=== PATIENT | male | born 1940 | race Caucasian/White ===

== ENCOUNTER 2018-09-17 13:12 | Emergency (ER) | payer MEDICARE ==
--- NOTE | 2018-09-17 14:34 | ED Physician Documentation ---
PD HPI HEAD INJURY - Stated complaint Stated Complaint: GLF - Chief complaint Chief Complaint: Trauma Hd/Nk - History obtained from History obtained from: Patient - History of Present Illness Mechanism of head injury: Fell (he was playing pickleball and stumbled and fell, striking back of head on bleacher. No LOC, no nausea. Got up and played 2 more games. Going home, he noted a lump on back of head. No headache per se. Here for evaluation. Does not feel other significant injury.) Where head injury occurred: Other (gymnasium in [place]) Timing - onset: How many hours ago (few), Today Location of injury: Back Quality of pain: No: Throbbing, Aching Associated symptoms: No: LOC, AMS, Nausea / vomiting, Neck pain Symptoms worsen with: Palpation Contributing factors: No: Anticoagulated, Intoxicated Similar symptoms before: Has not had sx before Review of Systems Constitutional: denies: Fever Nose: denies: Rhinorrhea / runny nose, Congestion Throat: denies: Sore throat Respiratory: denies: Cough GI: denies: Nausea, Vomiting, Diarrhea PD PAST MEDICAL HISTORY - Past Medical History Past Medical History: Yes Cardiovascular: Hypertension, High cholesterol Respiratory: None Neuro: None Endocrine/Autoimmune: None - Past Surgical History Past Surgical History: No - Present Medications Home Medications: Ambulatory Orders Medication Instructions Recorded Confirmed Acetaminophen 650 mg PO Q6H PRN 14 Days #30 09/18/18 capsule Atorvastatin Calcium 50 mg PO DAILY 09/18/18 09/18/18 Losartan Potassium 25 mg PO DAILY 09/18/18 09/18/18 Naproxen [Naprosyn] 500 mg PO BID PRN 15 Days #30 09/18/18 tablet amLODIPine [Norvasc] 5 mg PO DAILY 09/18/18 09/18/18 - Allergies Allergies/Adverse Reactions: Allergies Allergy/AdvReac Type Severity Reaction Status Date / Time silver sulfadiazine Allergy Unknown Verified 09/17/18 13:20 [From [facility]] - Social History Does the pt smoke?: No Smoking Status: Former smoker Does the pt drink ETOH?: Yes Does the pt have substance abuse?: No - Immunizations Immunizations are current?: Yes - POLST Patient has POLST: No PD ED PE NORMAL - Vitals Vital signs reviewed: Yes - General General: Alert and oriented X 3, No acute distress, Well developed/nourished - HEENT HEENT: Other (small lump on occiput, without bleeding. 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 No indication for imaging per [facility] head and neck guidelines. ), d/w patient Departure - Departure Disposition: 01 Home, Self Care Clinical Impression: Scalp contusion Qualifiers: Encounter type: initial encounter Qualified Code(s): S00.03XA - Contusion of scalp, initial encounter Fall in sports Qualifiers: Encounter type: initial encounter Qualified Code(s): W19.XXXA - Unspecified fall, initial encounter Condition: Stable Record reviewed to determine appropriate education?: Yes Instructions: ED Head Injury Closed Follow-Up: Ab River MD [Primary Care Provider] - Comments: You do not have any concussive symptoms. I do not see an indication for imaging at this time. Return if you have any symptoms develop. Tylenol or ibuprofen are fine for any scalp pain. Activity as able. Discharge Date/Time: 09/17/18 14:58
[2018-09-17] MEDS ORDERED: ACETAMINOPHEN 325 MG TABLET PO STA (14:47)
[2018-09-17 14:59] VITALS: BP 150/86
== END 2018-09-17 14:58 | disposition home or self-care (01) ==
LOC: ED 13:12
DX: S00.03XA Contusion of scalp, initial encounter (principal); W01.198A Fall on same level from slipping, tripping and stumbling with subsequent striking against other object, initial encounter; Y93.69 Activity, other involving other sports and athletics played as a team or group; Y92.39 Other specified sports and athletic area as the place of occurrence of the external cause; I10 Essential (primary) hypertension; Z87.891 Personal history of nicotine dependence
CPT/HCPCS: 99282; A9270

== ENCOUNTER 2018-09-18 06:44 | Emergency (ER) | payer MEDICARE ==
--- NOTE | 2018-09-18 07:13 | ED Physician Documentation ---
History of Present Illness - Stated complaint Stated Complaint: LT LEG PX - Chief complaint Chief Complaint: Trauma Ext - Additonal information Additional information: This is a 78-year-old male who presents for evaluation of some left posterior thigh pain. Patient was playing pickle ball yesterday when he tripped And fell backwards landing on his gluteal region and impacting his posterior scalp. He denies loss of consciousness and was feeling okay afterwards to the point that he actually played several more games. He presented to the emergency department yesterday for evaluation of a contusion to the back of his scalp, given that he is feeling well, had a normal neurologic exam, and had no concussive symptoms or loss of consciousness, decision was made to observe this and treated supportively. He states that his head is feeling fine today, but he has had some increasing soreness over his left lateral posterior thigh. The pain is worse when he is extending his leg on standing up, and when he actively flexes his knee. He denies any pain in the knee joint, denies any pain in his calf. No numbness tingling or weakness. The pain is mild in severity at rest, moderate with movement. Review of Systems Constitutional: denies: Fever Skin: reports: Other (+Contusion) Musculoskeletal: reports: Other (See HPI) Neurologic: denies: LOC PD PAST MEDICAL HISTORY - Past Medical History Past Medical History: Yes Cardiovascular: Hypertension, High cholesterol - Past Surgical History Past Surgical History: No - Present Medications Home Medications: Ambulatory Orders Medication Instructions Recorded Confirmed Acetaminophen 650 mg PO Q6H PRN 14 Days #30 09/18/18 capsule Atorvastatin Calcium 50 mg PO DAILY 09/18/18 09/18/18 Losartan Potassium 25 mg PO DAILY 09/18/18 09/18/18 Naproxen [Naprosyn] 500 mg PO BID PRN 15 Days #30 09/18/18 tablet amLODIPine [Norvasc] 5 mg PO DAILY 09/18/18 09/18/18 - Allergies Allergies/Adverse Reactions: Allergies Allergy/AdvReac Type Severity Reaction Status Date / Time silver sulfadiazine Allergy Unknown Verified 09/17/18 13:20 [From [facility]] - Social History Does the pt smoke?: No Smoking Status: Never smoker Does the pt drink ETOH?: Yes Does the pt have substance abuse?: No - Immunizations Immunizations are current?: Yes - POLST Patient has POLST: No PD ED PE NORMAL - Free text exam Free text exam: GENERAL: Awake, alert EYES: Normal sclera HENT/Mouth: Mucus membranes are moist RESP: Normal respiratory rate and effort CV: Regular rate and rhythm MSK:Lower extremities are symmetric, Patient has full active range of motion of his left hip knee and ankle. With active flexion of his knee he has some soreness in his left lateral hamstring, But no tenderness over the tendons. There is no ecchymosis. His strength with knee flexion extension is 5 out of 5 bilaterally. Distal sensation and pulses are intact. No tenderness along the joint line of the knee, patella, negative anterior and posterior drawer tests. NEURO: Alert, oriented x3; gross movement and sensation intact Results - Vitals Vitals: Vital Signs - 24 hr 09/18/18 06:50 Temperature 36 C L Heart Rate 76 Respiratory 16 Rate Blood Pressure 160/85 H O2 Saturation 98 Oxygen O2 Source Room air PD MEDICAL DECISION MAKING - ED course Complexity details: considered differential (Fracture, dislocation, strain, ligamentous injury,Sprain) ED course: On initial examination patient is in no acute distress. Vital signs are notable for mild hypertension. Patient had a minor head injury yesterday with no loss of consciousness, he is a very mild contusion on his scalp which he states is improving, he has no symptoms or neurologic findings to suggest that he needs imaging today. Regarding his Leg pain, he is able to ambulate but he is sore in the area of his left hamstring. He has no ecchymosis, his tendons appear intact, and he is not significantly tender to palpation, I feel that a significant tendon tear is unlikely, he more likely has a muscle strain. No bony tenderness or signs of fracture. He has full strength with flexion and extension of his knee, no signs of ligamentous injury on my knee exam. I recommended rest, ice, compression, elevation, prescribed him naproxen and Tylenol with instructions on their use, recommended follow-up with his primary care provider or sports medicine in 1 to 2 weeks as needed. Return precautions were discussed and patient was discharged home. Departure - Departure Disposition: Home, Self Care Clinical Impression: Left hamstring muscle strain Condition: Good Instructions: RICE Follow-Up: Ab River MD [Primary Care Provider] - (Please follow up in 1-2 weeks if you are having continued symptoms) Prescriptions: Acetaminophen 650 mg PO Q6H PRN 14 Days #30 capsule PRN Reason: Pain Naproxen [Naprosyn] 500 mg PO BID PRN 15 Days #30 tablet PRN Reason: Pain Comments: You appear to have a strain of your hamstring muscle. Please rest your leg, and avoid strenuous activity. Ice the area that is sore for 20 minutes at least 4- 5 times daily for the next 48 hours. If you develop severely increasing pain return to the emergency department, otherwise you may follow-up with your primary care provider or sports medicine doctor if you have continued symptoms in 1 to 2 weeks.
[2018-09-18 07:59] VITALS: BP 138/78
== END 2018-09-18 07:55 | disposition home or self-care (01) ==
LOC: ED 06:44
DX: S76.311A Strain of muscle, fascia and tendon of the posterior muscle group at thigh level, right thigh, initial encounter (principal); W01.0XXA Fall on same level from slipping, tripping and stumbling without subsequent striking against object, initial encounter; Y93.73 Activity, racquet and hand sports; I10 Essential (primary) hypertension
CPT/HCPCS: 99282; 99284

== ENCOUNTER 2019-12-24 08:00 | Outpatient (CLI) | payer MEDICARE ==
--- NOTE | 2019-12-24 10:58 | XRAY Report ---
PROCEDURE: Ribs w/PA Chest LT INDICATIONS: LEFT ANTERIOR RIB PAIN TECHNIQUE: 4 views of the left ribs were acquired, along with a single view chest. COMPARISON: None FINDINGS: Surgical changes and devices: None. Bones and chest wall: No fractures or dislocations. No suspicious bony lesions. Overlying soft tis sues appear unremarkable. Lungs and pleura: No pleural effusions or pneumothorax. Lungs appear clear. Mediastinum: Mediastinal contours appear normal. Heart size is normal. IMPRESSION: Chest without acute cardiopulmonary abnormalities. No acute rib fractures identified. Reviewed by: Jose C Thomas MD on 12/24/2019 9:57 AM [facility] Approved by: Jose C Thomas MD on 12/24/2019 9:57 AM [facility] Station ID: [id number]
--- NOTE | 2019-12-24 10:58 | XRAY Report ---
PROCEDURE: Chest 1 View X-Ray INDICATIONS: LEFT SIDED CHEST PAIN TECHNIQUE: One lateral view of the chest was acquired. COMPARISON: None. FINDINGS: Surgical changes and devices: None. Lungs and pleura: No pleural effusions or pneumothorax. Lungs are clear. Mediastinum: Cardiomediastinal contours appear within normal limits on this lateral view. Bones and chest wall: No suspicious bony lesions. Overlying soft tissues appear unremarkable. IMPRESSION: Lateral view of the chest without acute cardiopulmonary abnormalities. No acute compression fractures of the imaged spine. Reviewed by: Jose C Thomas MD on 12/24/2019 9:56 AM [facility] Approved by: Jose C Thomas MD on 12/24/2019 9:56 AM [facility] Station ID: [id number]
== END 2019-12-24 23:59 ==
LOC: DI.S 08:00
PROVIDERS: ATTEND Physician Assistant Medical
DX: R07.81 Pleurodynia (principal)

== ENCOUNTER 2023-01-12 08:35 | Outpatient (CLI) | payer MEDICARE ==
[2023-01-12 15:41] LABS: HCT - HEMATOCRIT 41.4 % (42.0-52.0); HGB - HEMOGLOBIN 13.6 g/dL (14.0-18.0); MEAN CORPUSCULAR HEMOGLOBIN 33.6 pg (27.0-31.0); MEAN CORPUSCULAR HGB CONC 32.9 g/dL (32.0-36.0); MEAN CORPUSCULAR VOLUME 102.2 fL (80.0-94.0); RED BLOOD COUNT 4.05 10^6/uL (4.70-6.10); RED CELL DISTRIBUTION WIDTH 12.9 % (12.0-15.0); WHITE BLOOD COUNT 4.6 x10^3/uL (4.8-10.8)
[2023-01-12 16:19] LABS: ALBUMIN 4.4 g/dL (3.2-5.5); ALBUMIN/GLOBULIN RATIO 1.6 (1.0-2.2); ALKALINE PHOSPHATASE 77 IU/L (42-121); ALT ALANINE AMINOTRANSFERASE 24 IU/L (10-60); AST ASPARTATE AMINOTRANSFERASE 22 IU/L (10-42); BILIRUBIN,TOTAL 0.8 mg/dL (0.2-1.0); BUN - BLOOD UREA NITROGEN 14 mg/dL (6-20); CALCIUM 9.6 mg/dL (8.5-10.3); CARBON DIOXIDE - CO2 29 mmol/L (21-32); CHLORIDE 104 mmol/L (101-111); CHOL/HDL RATIO 2.8 (<5.0); CHOLESTEROL 172 mg/dL; CREATININE 0.8 mg/dL (0.6-1.3); GFR - MDRD 93 (>89); GLUCOSE 118 mg/dL (74-104); HDL CHOLESTEROL 61 mg/dL; LDL CHOLESTEROL,CALCULATED 85 mg/dL; LDL/HDL RATIO 1.4 (<3.6); POTASSIUM 3.8 mmol/L (3.5-4.5); SODIUM 139 mmol/L (135-145); TOTAL PROTEIN 7.2 g/dL (6.4-8.9); TRIGLYCERIDES 129 mg/dL (48-352); VLDL CHOLESTEROL 26 mg/dL
[2023-01-12 16:31] LABS: THYROID STIMULATING HORMONE 3.65 uIU/mL (0.34-5.60)
== END 2023-01-12 08:36 | disposition home or self-care (01) ==
LOC: LAB.S 08:35
PROVIDERS: ATTEND Family Medicine
DX: I10 Essential (primary) hypertension (principal); E78.00 Pure hypercholesterolemia, unspecified
CPT/HCPCS: 36415; 80053; 80061; 82607; 83721; 84443; 85027

== ENCOUNTER 2023-03-23 16:27 | Outpatient (CLI) | payer MEDICARE ==
--- NOTE | 2023-03-23 17:41 | Ultrasound Report ---
PROCEDURE: Duplex Ext Veins Right INDICATIONS: LOCALIZED SWELLING,MASS AND LUMP TECHNIQUE: Real-time imaging, as well as color and pulse Doppler interrogation, were performed of the lower extr emity deep veins from the inguinal ligament to the popliteal fossa. Attempted visualization of the ca lf veins was performed. COMPARISON: None. FINDINGS: The deep veins are normally compressible, and free of intraluminal thrombus. Color and pu lse Doppler demonstrate normal phasic intraluminal flow. There is normal augmentation response to di stal compression maneuver. IMPRESSION: No deep venous thrombosis of the visualized lower extremity. Reviewed by: Bryan Johnson MD on 03/23/2023 5:39 PM PST Approved by: Bryan Johnson MD on 03/23/2023 5:39 PM PST Station ID: [id number]
== END 2023-03-23 16:28 | disposition home or self-care (01) ==
LOC: DI 16:27
PROVIDERS: ATTEND Physician Assistant Medical
DX: R22.41 Localized swelling, mass and lump, right lower limb (principal); M79.661 Pain in right lower leg